=== PATIENT | female | born 1930 | race Caucasian/White ===

== ENCOUNTER 2018-01-07 16:47 | Inpatient (IN) | payer OTHER ==
[~2018-01-07] VITALS: Ht 160 cm; Wt 48.2 kg
--- NOTE | ~2018-01-07 | S ---
[facility] [place] [address] SURGICAL PATH RPT PROCEDURE Name: SHIRIN DUMONT Room #: 421-P ADM IN M.R.#: [id number] Admission: 01/07/18 Date of : 32 Discharge: Report #: [id number] Path Case #: [id number] PATHOLOGY REPORT COLLECTION DATE: 01/12/2018 RECEIVED DATE: 01/12/2018 SUBMITTING PHYS: Dr. Zuhair Severino OTHER PHYS: Dr. Dae Quiroz SPECIMEN(S) RECEIVED: A.Gallbladder * * * * * * * * * * * * FINAL DIAGNOSIS: Gallbladder, cholecystectomy: - Moderate chronic cholecystitis. PATHOLOGIST: Narda Love M.D. REPORT ELECTRONICALLY SIGNED BY: Narda Love M.D. DATE/TIME: 01/13/2018 11:23 * * * * * * * * * * * * GROSS PATHOLOGY: Received in formalin labeled "Shirin Dumont gallbladder" and consists of a previously opened gallbladder measuring 8 cm in length by 5.7 cm in circumference. The serosa is glistening, brown, and pink. The margin is inked. The wall thickness averages 0.2 cm. The mucosa is granular, yellow, and glistening. There are no calculi present within the specimen container. Severity Of Illness Coordinator sections are submitted as A1. (NICKI; 01/12/2018) CLINICAL HISTORY: Pre-op: Symptomatic cholelithiasis. Postop: Acute cholecystitis INITIAL CPT CODE(S): A; 97004 Professional services performed by [facility] at [facility] [address] [place] [address] Technical services performed by [facility] at [address] [place] [id number]. [facility] [address] [place] [address] SURGICAL PATH RPT PROCEDURE Name: SHIRIN DUMONT Room #: 421-P ADM IN M.R.#: [id number] Admission: 01/07/18 Date of : 32 Discharge: Report #: [id number] Path Case #: [id number] [address] PHONE: [phone] DIRECTOR: Russel Turner M.D. * * * END OF REPORT * * *
--- NOTE | ~2018-01-07 | EKG ---
[address] [place] [address] ELECTROCARDIOGRAM REPORT Name: SHIRIN DUMONT Room #: 421-P ADM IN M.R.#: [id number] Admission: 01/07/18 Attend Phys: Dae Lin Discharge: Date of : 32 Report #: [id number] THIS REPORT FOR: //name// [facility] ED Test Date: 2018-01-07 Test Time: 18:05:41 Pat Name: SHIRIN DUMONT Department: Room: 421 Gender: F Banana Loader: IGNACIO : 1930 Requested By: Evan Madsen Order Number: [id number] MD: Lincoln Londono Measurements Intervals [place] Rate: 76 P: 88 MD: 160 QRS: 10 QRSD: 91 T: 48 QT: 511 QTc: 575 Interpretive Statements Sinus rhythm Left atrial enlargement LVH with secondary repolarization abnormality Prolonged QT interval No previous ECG available for comparison Electronically Signed On 01-08-2018 8:27:15 [facility] by Lincoln Londono [email or web address] <ELECTRONICALLY SIGNED> By: Lincoln Londono MD, [facility] 01/08/18 0827 1805 180 Lincoln Londono MD, FACC /EPI
--- NOTE | ~2018-01-07 | HC ---
[facility] [place] [address] CONSULTATION Name: SHIRIN DUMONT Room #: 421-P [facility] IN M.R.#: [id number] Admission: 01/07/18 Attend Phys: Dae Lin Discharge: 01/14/18 Date of : 32 Report #: [id number] THIS REPORT FOR: //name// CC: Raymond Severino DATE OF SERVICE: 01/08/2018 REASON FOR CONSULTATION: End-stage renal disease. HISTORY OF PRESENT ILLNESS: This 87-year-old patient, well known to our service, has been on dialysis for a couple of years. She has had hypertension, otherwise a relatively uneventful course. Over the last several weeks, she has had nausea, vomiting, early satiety and abdominal pain. This persisted. She did not respond to outpatient management and was admitted. Evaluation shows cholelithiasis, possible cholecystitis and she also was found to have new onset of hypercalcemia. PAST MEDICAL HISTORY: End-stage renal disease, longstanding hypertension, she has had previous hysterectomy and appendectomy. HOME MEDICATIONS: Amlodipine 5 mg daily, Xanax 0.25 mg t.i.d. p.r.n., aspirin 81 mg daily, Nephrocaps 1 daily, carvedilol 50 mg b.i.d., Renvela 800 mg t.i.d. with meals, and trazodone 100 mg at bedtime. ALLERGIES: Reportedly to SULFA. SOCIAL HISTORY: No cigarettes or alcohol. REVIEW OF SYSTEMS: GENERAL: She has been having trouble with her digestion, not much else. EYES: Her vision is okay. ENT: Hearing okay. Swallows okay. Denies mouth ulcers. ENDOCRINE: No diabetes or thyroid disease. RESPIRATORY: No shortness of breath, pleuritic pain, or hemoptysis. CARDIAC: No chest pain or palpitations. GASTROINTESTINAL: She has had the nausea, the vomiting, the early satiety, and abdominal pain. GENITOURINARY: No dysuria. NEUROLOGIC: Generalized weakness. MUSCULOSKELETAL: No arthritis. PHYSICAL EXAMINATION: GENERAL: The patient is a somewhat chronically ill-appearing elderly patient. [address] [address] CONSULTATION Name: SHIRIN DUMONT Room #: 421-P [facility] IN M.R.#: [id number] Admission: 01/07/18 Attend Phys: Dae Lin Discharge: 01/14/18 Date of : 31 Report #: [id number] SKIN: Unremarkable. SKELETAL: Nonobese. HEENT: Extraocular movements are full. No scleral icterus. Hearing and vision intact. Mucous membranes are dry. NECK: Veins are flat. CHEST: Clear to auscultation. HEART: Regular. ABDOMEN: Shows tenderness particularly in the epigastric and right side of the abdomen, particularly the right upper quadrant. EXTREMITIES: Show no edema. LABORATORY DATA: Remarkable for hemoglobin 9.1, white count 7.7, and platelets 238. Sodium 140, potassium 3.5, chloride 103, bicarbonate 28, BUN 39, creatinine 5.2. ASSESSMENT: 1. Nausea, vomiting, and abdominal pain. She appears to have cholelithiasis and cholecystitis and appears to be a candidate for cholecystectomy and that is being arranged. 2. End-stage renal disease, for dialysis today. 3. Hypercalcemia. She has developed hypercalcemia, I suspect her Sensipar was stopped. She has been on some vitamin D analogs at the clinic . For completeness, I will check paraprotein and she will dialyze calcium bath today. <ELECTRONICALLY SIGNED> By: Flash Pereira MD 01/19/18 1706 1051 1344 Flash Pereira MD /nt
--- NOTE | ~2018-01-07 | O ---
[facility] [place] [address] OPERATIVE REPORT Name: SHIRIN DUMONT Room #: 421-P [facility] IN M.R.#: [id number] Admission: 01/07/18 Attend Phys: Dae Lin Discharge: Date of : 31 Report #: [id number] THIS REPORT FOR: //name// CC: Raymond Severino DATE OF SERVICE: 01/12/2018 SURGEON: Zuhair Severino MD BU[employer]ER RENTER: Beatriz Hall NP PREOPERATIVE DIAGNOSES: 1. Symptomatic cholelithiasis. 2. Renal failure with hemodialysis dependence. POSTOPERATIVE DIAGNOSES: 1. Acute cholecystitis. 2. Renal failure with hemodialysis dependence. PROCEDURE: Laparoscopic cholecystectomy with intraoperative cholangiogram. ANESTHESIA: General endotracheal anesthesia and local anesthetic. ESTIMATED BLOOD LOSS: 10 mL. SPECIMEN: Gallbladder. COMPLICATIONS: None appreciated. INDICATIONS FOR PROCEDURE: This is an 87-year-old female patient who was admitted with postprandial nausea and upper abdominal pain ongoing over the 2-3 days prior to her admission. She reports poor appetite and weight loss in addition to this. She is hemodialysis dependent, undergoing dialysis on Mondays, Wednesdays and Fridays. CT of the abdomen and pelvis showed gallbladder wall thickening with no significant distention of the gallbladder. This was followed by an abdominal ultrasound showing cholelithiasis with gallbladder sludge. The patient presents now for laparoscopic cholecystectomy with cholangiogram. OPERATIVE FINDINGS: Upon entrance into the abdominal cavity, the liver, stomach, small-bowel and colon in the surrounding area appeared otherwise normal. Acute cholecystitis changes were present upon dissection as fluid was present in the gallbladder tissue. The patient had some nonobstructive [facility] [address] [place] [address] OPERATIVE REPORT Name: SHIRIN DUMONT Room #: 421-P ADM IN M.R.#: [id number] Admission: 01/07/18 Attend Phys: Dae Lin Discharge: Date of : 31 Report #: [id number] intraabdominal adhesions as well, which did not require significant lysis. The critical view consisting of cystic artery, cystic duct and lower edge of the gallbladder forming a window through which the liver was visible was seen prior to clipping the cystic duct for cholangiogram. The cholangiogram was normal with flow of contrast into the duodenum. No filling defects were seen within the biliary tree. Three clips remained on the cystic duct stump after division of the cystic duct. Upon opening the gallbladder on the back table, sludge was seen within the gallbladder with no discrete gallstones. Acute inflammatory changes were present. At the conclusion of the operation, the sponge, needle, and instrument counts were correct. No other significant intra-abdominal pathology was seen. DESCRIPTION OF PROCEDURE IN DETAIL: After the benefits and risks of the procedure were explained to the patient which include but are not limited to risks of bleeding, infection, injury to the biliary tree, injury to adjacent organs, risk of DVT, pulmonary embolus, postoperative pain and postoperative expectations informed consent was obtained. The patient was identified in the preoperative holding area. The patient was then given IV antibiotics as documented in the chart in line with SCIP metrics. The patient was taken to the operating room and was placed in the supine position. The patient was given IV sedation and was intubated without incident. A time-out was performed to correctly identify the patient and procedure. SCDs were placed on the patient's bilateral lower extremities. The patient's abdomen was then prepped and draped in the standard sterile fashion with ChloraPrep. Local anesthetic was infiltrated into the skin and subcutaneous tissue. A periumbilical incision was made with a #15 blade scalpel. The 11-mm Visiport was then placed intraperitoneally with the 10-mm 0-degree angled laparoscope. After confirmation of placement within the peritoneal cavity, the scope was changed to a 10-mm 30 degree angled laparoscope and pneumoperitoneum was achieved with insufflation of carbon dioxide. The patient was placed in the reverse Trendelenburg position, rotated to the patient's left. A subxiphoid 5 mm and right subcostal 5 mm ports times 2 were placed under direct visualization after local anesthetic was infiltrated into the skin and subcutaneous tissue and appropriately sized incisions were made. Operative findings are as noted above. The dome of the gallbladder was retracted in a cephalad direction. The gallbladder peritoneum was scored medially and laterally after takedown of the adhesions to the gallbladder. Dissection was carried out around the cystic artery and cystic duct to identify each structure as entering directly into the gallbladder. The critical view as described above was seen. A Hemoclip was then placed on the cystic duct at its junction with the gallbladder. A ductotomy was made and the cholangiocatheter was passed into the cystic duct. A clip was placed, contrast was then injected and cholangiogram findings are as noted above. The cholangiocatheter was then removed and the cystic duct was triply clipped distal to the ductotomy. The duct was divided at the ductotomy [facility] [address] [place] [address] OPERATIVE REPORT Name: SHIRIN DUMONT Room #: 421-P [facility] IN M.R.#: [id number] Admission: 01/07/18 Attend Phys: Dae Lin Discharge: Date of : 31 Report #: [id number] site with the ultrasonic scalpel. The cystic artery was then divided with the ultrasonic scalpel as well. The gallbladder was then dissected off the liver bed with the ultrasonic scalpel and after fully removing the gallbladder, it was placed in an Endopouch and then removed through the periumbilical port site. The abdominal cavity was then reentered. Other operative findings are as noted above. The liver bed was made hemostatic with a combination of electrocautery and other hemostatic agent as documented in the chart. After ensuring final hemostasis and ensuring that the clips were secure, the periumbilical port site fascial opening was closed with a simple interrupted 0 PDS suture under direct visualization using the [place] laparoscopic fascial closure device. The ports were removed and the abdominal cavity was desufflated. The fascial suture had been tied under direct visualization to ensure no incorporation of intraabdominal content. Interrupted subcuticular 4-0 Monocryl sutures and Dermabond were used to close the skin. The patient tolerated the procedure well. The patient was awakened, extubated and taken to the recovery room in stable condition with no apparent intraoperative complications. <ELECTRONICALLY SIGNED> By: Zuhair Severino MD, FACS 01/14/18 0953 1420 1502 Zuhair Severino MD, FACS /nt
[2018-01-07 16:51] VITALS: BP 161/51
[2018-01-07 17:22] LABS: ABSOLUTE NEUTROPHILS 5.8 thou/uL (1.4-8.2); BASOPHILS 0.4 % (0.0-2.0); EOSINOPHILS 1.8 % (0.0-3.0); HEMATOCRIT 29.7 % (37.0-47.0); HEMOGLOBIN 10.1 gm/dL (12.0-15.0); LYMPHOCYTES 10.7 % (24.0-44.0); MCH 36.3 pg (26.0-34.0); MCHC 34.1 g/dL (28.0-37.0); MCV 106.4 fL (80.0-100.0); MONOCYTES 6.9 % (1.0-8.0); PLATELET COUNT 263 thou/uL (150-400); POLYS 80.2 % (36.0-66.0); RBC 2.79 mil/uL (4.20-5.00); RDW 15.2 % (10.5-14.5); WBC 7.2 thou/uL (4.0-11.0)
[2018-01-07 17:42] LABS: ALBUMIN 2.5 g/dL (3.4-5.0); CREATININE 4.6 mg/dL (0.6-1.0); DIRECT BILIRUBIN 0.2 mg/dL (<0.1-0.3); POTASSIUM 3.4 mmol/L (3.5-5.1); TOTAL BILIRUBIN 0.4 mg/dL (<0.1-1.0); TOTAL PROTEIN 7.8 g/dL (6.4-8.2)
[2018-01-07 17:45] LABS: CALCIUM 12.1 mg/dL (8.5-10.1)
[2018-01-07] MEDS ORDERED: XANAX 0.25 MG0.25 MG PO (19:11)
[2018-01-07] MEDS ORDERED: NORVASC5 MG PO (19:11)
[2018-01-07] MEDS ORDERED: NEPHROCAPS SOFT1 CAP PO (19:12)
[2018-01-07] MEDS ORDERED: ASPIR 8181 MG PO (19:12)
[2018-01-07] MEDS ORDERED: COREG25 MG PO (19:12)
[2018-01-07] MEDS ORDERED: RENVELA800 MG PO (19:16)
[2018-01-07] MEDS ORDERED: LOPERAMIDE 2 MG2 M1 PO (19:16)
[2018-01-07] MEDS ORDERED: SENSIPAR 30 MG30 M1 PO (19:16)
[2018-01-07] MEDS ORDERED: TRAZODONE HCL100 MG PO (19:17)
[2018-01-07 19:26] VITALS: BP 173/58
[2018-01-07 20:14] VITALS: BP 171/56
[2018-01-07 20:25] VITALS: BP 134/65
[2018-01-07] MEDS ORDERED: PROBIOTIC1 EAC1 PO (21:28)
[2018-01-07 23:53] VITALS: BP 199/76
[2018-01-08 03:15] VITALS: BP 156/66
[2018-01-08 05:34] LABS: HEMATOCRIT 26.5 % (37.0-47.0); HEMOGLOBIN 9.1 gm/dL (12.0-15.0); MCH 36.8 pg (26.0-34.0); MCHC 34.4 g/dL (28.0-37.0); MCV 107.1 fL (80.0-100.0); RBC 2.48 mil/uL (4.20-5.00); RDW 15.2 % (10.5-14.5); WBC 7.7 thou/uL (4.0-11.0)
[2018-01-08 05:39] LABS: ALBUMIN 2.2 g/dL (3.4-5.0); CALCIUM 11.6 mg/dL (8.5-10.1); CREATININE 5.2 mg/dL (0.6-1.0); POTASSIUM 3.5 mmol/L (3.5-5.1); TOTAL BILIRUBIN 0.5 mg/dL (<0.1-1.0); TOTAL PROTEIN 7.3 g/dL (6.4-8.2)
[2018-01-08 07:25] VITALS: BP 145/51
[2018-01-08 19:31] LABS: CALCIUM 10.2 mg/dL (8.5-10.1); CREATININE 2.3 mg/dL (0.6-1.0); PHOSPHORUS 2.2 mg/dL (2.5-4.9)
[2018-01-08 19:37] VITALS: BP 185/57
[2018-01-09 04:00] VITALS: BP 173/61
[2018-01-09 08:02] VITALS: BP 130/61
[2018-01-09 17:29] VITALS: BP 171/58
[2018-01-09 20:00] VITALS: BP 150/41
[2018-01-10 04:30] VITALS: BP 173/50
[2018-01-10 05:06] LABS: CALCIUM 11.1 mg/dL (8.5-10.1); CREATININE 4.7 mg/dL (0.6-1.0); POTASSIUM 3.9 mmol/L (3.5-5.1); TOTAL BILIRUBIN 0.5 mg/dL (<0.1-1.0); TOTAL PROTEIN 6.6 g/dL (6.4-8.2)
[2018-01-10 07:33] VITALS: BP 178/50
[2018-01-10 11:06] LABS: KAPPA FREE LIGHT CHAINS 312.8 mg/L (3.3-19.4); KAPPA/LAMBDA RATIO 1.89 (0.26-1.65); LAMBDA FREE LIGHT CHAINS 165.6 mg/L (5.7-26.3)
[2018-01-10 15:30] VITALS: BP 169/51
[2018-01-10 20:00] VITALS: BP 164/49
[2018-01-11] VITALS: BP 146/41
[2018-01-11 04:00] VITALS: BP 152/46
[2018-01-11 12:30] VITALS: BP 167/57
[2018-01-11 15:09] LABS: GLOBULIN TOTAL 3.8 g/dL (2.2-3.9); M-SPIKE Not Observed g/dL (Not Observed)
[2018-01-11 15:33] VITALS: BP 167/57
[2018-01-11 19:56] VITALS: BP 161/51
[2018-01-12 04:39] VITALS: BP 158/63
[2018-01-12 07:25] VITALS: BP 172/62
[2018-01-12 10:19] VITALS: BP 130/60
[2018-01-12 14:35] VITALS: BP 154/58
[2018-01-12 20:00] VITALS: BP 129/41
[2018-01-13 04:30] VITALS: BP 124/45
[2018-01-13 06:40] LABS: ABSOLUTE NEUTROPHILS 6.8 thou/uL (1.4-8.2); BASOPHILS 0.3 % (0.0-2.0); EOSINOPHILS 1.6 % (0.0-3.0); HEMATOCRIT 25.1 % (37.0-47.0); HEMOGLOBIN 8.5 gm/dL (12.0-15.0); LYMPHOCYTES 9.2 % (24.0-44.0); MCH 36.5 pg (26.0-34.0); MCV 107.5 fL (80.0-100.0); MONOCYTES 6.1 % (1.0-8.0); PLATELET COUNT 267 thou/uL (150-400); POLYS 82.8 % (36.0-66.0); RBC 2.33 mil/uL (4.20-5.00); RDW 14.7 % (10.5-14.5); WBC 8.2 thou/uL (4.0-11.0)
[2018-01-13 06:53] LABS: PHOSPHORUS 7.6 mg/dL (2.5-4.9); POTASSIUM 5.3 mmol/L (3.5-5.1)
[2018-01-13] MEDS ORDERED: HYDROCODONE-AP1 EAC6 PO (07:25)
[2018-01-13] MEDS ORDERED: SENNA-S TABLET1 EACH PO (07:25)
[2018-01-13 08:05] LABS: ANISOCYTOSIS 1+; MACROCYTES 1+
[2018-01-13] MEDS ORDERED: HYDROCODON-ACE1 EAC7 PO (10:07)
[2018-01-13] MEDS ORDERED: ACETAMINOPHEN325 M1 PO (10:07)
[2018-01-13 15:10] VITALS: BP 153/54
[2018-01-13 19:10] VITALS: BP 159/52
[2018-01-14 00:17] VITALS: BP 134/47; BP 88/43
[2018-01-14 03:52] VITALS: BP 145/50
[2018-01-14 07:04] VITALS: BP 142/40
[2018-01-14 09:12] VITALS: BP 142/40
== END 2018-01-14 11:51 | DRG 417 ==
LOC: ER 16:47 → EROBS 18:55 → 4E 18:55
PROVIDERS: Hospitalist; Internal Medicine Nephrology; Nurse Practitioner; Surgery
PROC: 5A1D70Z Performance of Urinary Filtration, Intermittent, Less than 6 Hours Per Day (ICD-10-PCS; 2018-01-08)
PROC: 5A1D70Z Performance of Urinary Filtration, Intermittent, Less than 6 Hours Per Day (ICD-10-PCS; 2018-01-11)
PROC: BF121ZZ Fluoroscopy of Gallbladder using Low Osmolar Contrast (ICD-10-PCS; principal; 2018-01-12)
PROC: 0FT44ZZ Resection of Gallbladder, Percutaneous Endoscopic Approach (ICD-10-PCS; principal; 2018-01-12)
PROC: 5A1D70Z Performance of Urinary Filtration, Intermittent, Less than 6 Hours Per Day (ICD-10-PCS; 2018-01-13)
DX: K80.80 Other cholelithiasis without obstruction (principal); N18.6 End stage renal disease; I12.0 Hypertensive chronic kidney disease with stage 5 chronic kidney disease or end stage renal disease; R62.7 Adult failure to thrive; E83.52 Hypercalcemia; D64.9 Anemia, unspecified; E87.6 Hypokalemia; Z90.49 Acquired absence of other specified parts of digestive tract; Z79.899 Other long term (current) drug therapy; Z88.2 Allergy status to sulfonamides; Z88.8 Allergy status to other drugs, medicaments and biological substances; Z90.710 Acquired absence of both cervix and uterus; Z99.2 Dependence on renal dialysis
CPT/HCPCS: 10084; 32100; 50101; 50249; 50411; 50555; 50558; 50962; 51489; 51975; 52265; 52266; 53307; 54022; 54118; 55245; 55317; 56462; 56525; 56526; 62110; 62900; 70005